=== PATIENT | male | born 1985 | race Caucasian/White ===

== ENCOUNTER → 2021-05-27 | Outpatient (CLI) | payer OTHER ==
[~2021-05-27] MED LIST: CATAPRES-TTS 10.1 MG TD; CIPROFLOXACIN500 M3 PO; DIAZEPAM 5 MG5 MG PO; ELAVIL PO; ENDOCET 10-3251 EACH PO; HYDROCODON-ACE1 EAC5; HYDROCODON-ACE1 EAC5 PO; HYDROCODON-ACE1 EACH PO; IBUPROFEN200 M2 PO; METHADONE HCL 110 M1 PO; MS CONTIN15 MG PO; MULTIVITAMINS; MULTIVITAMINS PO; NORCO 10-325 T1 EACH PO; NORCO 5-325 TA1 EACH PO; OXYCODONE-ACET1 EAC2 PO; PERCOCET 10-321 EACH PO; PERCOCET 5-3251 EACH; PERCOCET 5-3251 EACH PO; PERCOCET 7.5-31 EACH PO; PRISTIQ50 MG PO; TRAMADOL 50 MG50 MG PO; VALIUM2 MG PO; VALIUM5 MG; XANAX 0.5 MG0.5 M1 PO
== END ==
LOC: HYPER 05-26 08:23
PROVIDERS: ATTEND Specialist
DX: T81.31XA Disruption of external operation (surgical) wound, not elsewhere classified, initial encounter (principal); T81.49XA Infection following a procedure, other surgical site, initial encounter; R60.0 Localized edema; M54.50 Low back pain, unspecified; G89.4 Chronic pain syndrome; G82.20 Paraplegia, unspecified; M47.817 Spondylosis without myelopathy or radiculopathy, lumbosacral region; G83.10 Monoplegia of lower limb affecting unspecified side; G40.909 Epilepsy, unspecified, not intractable, without status epilepticus; Z98.890 Other specified postprocedural states; Z79.899 Other long term (current) drug therapy; Y83.8 Other surgical procedures as the cause of abnormal reaction of the patient, or of later complication, without mention of misadventure at the time of the procedure; Y92.238 Other place in hospital as the place of occurrence of the external cause